=== PATIENT | female | born 1970 | race Caucasian/White ===

== ENCOUNTER 2024-08-31 18:20 | Emergency (ER) | payer BC, SELFPAY ==
[2024-08-31 18:29] VITALS: BP 144/88; PULSE 77; RESP 16; TEMP 36.8; O2SAT 98
--- NOTE | 2024-08-31 18:53 | ED_ITS ---
HPI - Skin/Abscess/Foreign Bdy General Chief complaint: Skin/Abscess/Foreign Body Stated complaint: SKin Problem/Finger Nail Time Seen by Provider: 08/31/24 18:54 Source: patient Mode of arrival: ambulatory Limitations: no limitations History of Present Illness HPI narrative: 54-year-old female presented for complaint of possible fungal infection to the right index finger. Patient states 2 weeks ago she had artificial nails applied and removed yesterday. She says the cuticle and nail bed white , and the nailbed is painful. Denies Swelling, drainage or warmth. Hx toenail fungal infections. Related Data Home Medications ?Medication ?Instructions ?Recorded ?Confirmed ?Last Taken ?Type amitriptyline 10 mg tablet mg 08/31/24 Unknown History celecoxib 200 mg capsule mg 08/31/24 Unknown History erenumab-aooe 140 mg/mL mg subcut 08/31/24 Unknown History subcutaneous auto-injector (Aimovig Autoinjector) lisdexamfetamine 40 mg capsule mg 08/31/24 Unknown History metoprolol succinate 50 mg mg PO 08/31/24 Unknown History tablet,extended release 24 hr montelukast 10 mg tablet mg 08/31/24 Unknown History Allergies Allergy/AdvReac Type Severity Reaction Status Date / Time No Known Allergies Allergy Verified 08/31/24 18:35 Review of Systems 2 Review of Systems: CONSTITUTIONAL: Denies body aches, fever, chills, or sweats. EYES: Denies visual changes, redness, or discharge. ENT: Denies rhinorrhea, congestion CARDIOVASCULAR: Denies chest pain, palpitations, or edema. RESPIRATORY: Denies cough or dyspnea. GASTROINTESTINAL: Denies abdominal pain, nausea, vomiting, or diarrhea. SKIN: reports white nail bed right index finger MUSCULOSKELETAL: Denies back pain, joint pain, or myalgia. NEUROLOGIC: Denies headache, numbness, tingling, or weakness. PMFSH Comments At time of signature, I have reviewed and agree with nursing past medical, surgical, social and family history unless otherwise noted. Please see nursing chart for further information. There is no relevant family history pertinent to the presenting complaint Exam 2 Narrative: GENERAL: Well-appearing EYES: conjunctivae clear, and EOMI. ENT: Mucous membranes moist. Oropharynx without edema, erythema or lesions. NECK: Supple. No lymphadenopathy CHEST: Clear to auscultation. HEART: Regular rate and rhythm. SKIN: Warm, dry. right 2nd digit with subungual area of white tissue at cuticle, tender. no apparent paronychia noted, no drainage. NEURO: Alert and oriented x3. Extrem: Hand/finger images: 1. area subungual white tissue Course Course Emergency Course: Patient is aware of diagnosis, understands and agrees to treatment plan. Anticipatory guidance given. Patient agrees to follow-up as directed and is aware of reasons to seek care at the emergency department. Portions of this record may have been created with voice recognition software Level of Care: Express Care Visit Vital Signs Vital signs: Vital Signs Temperature 98.2 F 08/31/24 18:29 Pulse Rate 77 08/31/24 18:29 Respiratory Rate 16 08/31/24 18:29 Blood Pressure 144/88 H 08/31/24 18:29 Pulse Oximetry 98 08/31/24 18:29 Oxygen Delivery Room Air 08/31/24 18:29 Temperature 98.2 F 08/31/24 18:29 Pulse Rate 77 08/31/24 18:29 Respiratory Rate 16 08/31/24 18:29 Blood Pressure 144/88 H 08/31/24 18:29 Pulse Oximetry 98 08/31/24 18:29 Oxygen Delivery Room Air 08/31/24 18:29 Reviewed MDM - Skin/Abscess/Foreign Bdy MDM Narrative Medical decision making narrative: Discussed physical exam findings and reviewed with pt possible meds for treatment, recommend f/u with pcp regarding oral meds. She is agreeable to use Penlac which she has used in the past. Advised supportive measures and signs/symptoms to go to the ER. Pt is appropriate for outpt treatment and f/u. Differential Diagnosis Differential diagnosis: Likely abscess of skin or subcutaneous tissue, urticaria, herpes zoster, cellulitis and contact dermatitis Discharge Plan Discharge Clinical Impression: Onychomycosis Patient Disposition: Home, Self-Care Condition: Stable Instructions: Antibiotic Form Additional Instructions: Keep the Skin clean and dry - cleanse with warm water and mild soap and allow to fully dry. uses suspension as directed Watch for worsening symptoms including pain, redness, swelling, streaking, pus/drainage, fever. Go to the ER with any of these symptoms or concerns. Follow up with primary care provider in 2 weeks as needed. Patient Language: Azeri Prescriptions: New ciclopirox 0.77 % cream 1 applic topical BID 28 Days Qty: 30 0RF No Action celecoxib 200 mg capsule metoprolol succinate 50 mg tablet extended release 24 hr PO amitriptyline 10 mg tablet montelukast 10 mg tablet lisdexamfetamine 40 mg capsule Aimovig Autoinjector 140 mg/mL auto-injector SUBCUT Follow-up/Referrals: PHYSICIAN NOT ON STAFF,NONSTAFF [Primary Care Provider] -
== END 2024-08-31 19:08 | disposition home or self-care (01) ==
PROVIDERS: Emergency Provider Nurse Practitioner Family
DX: B35.1 Tinea unguium (principal); I10 Essential (primary) hypertension; J45.909 Unspecified asthma, uncomplicated; D68.51 Activated protein C resistance; E06.3 Autoimmune thyroiditis
CPT/HCPCS: 99203; G0463